=== PATIENT | female | born 1940 | race Caucasian/White ===

== ENCOUNTER 2017-05-20 11:49 | Inpatient (IN) | payer MEDICARE, OTHER ==
[2017-05-20 14:05] LABS: ADD MAN DIFF? NO
[2017-05-20] MEDS: ONDANSETRON 4 MG INJ IV (14:05)
[2017-05-20] MEDS: morphine 4 MG/ML VIAL IV (14:06)
[2017-05-20 14:10] LABS: BASOPHILS % 0.4 % (0.0-2.0); EOSINOPHILS # 0.2 10^3/ul (0.0-0.5); EOSINOPHILS % 2.6 % (0.0-7.0); HEMATOCRIT 37.8 % (37.0-47.0); HEMOGLOBIN 12.6 g/dl (12.0-16.0); LYMPHOCYTES # 1.2 10^3/ul (0.8-2.9); LYMPHOCYTES % 13.7 % (15.0-51.0); MEAN CORPUSCULAR HEMOGLOBIN 29.4 pg (29.0-33.0); MEAN CORPUSCULAR HGB CONC 33.3 g/dl (32.0-37.0); MEAN CORPUSCULAR VOLUME 88.1 fl (82.0-101.0); MEAN PLATELET VOLUME 10.3 fl (7.4-10.4); MONOCYTE # 0.8 10^3/ul (0.3-0.9); MONOCYTES % 8.9 % (0.0-11.0); NEUTROPHIL # 6.7 10^3/ul (1.6-7.5); NEUTROPHILS % 74.1 % (39.0-77.0); PLATELET COUNT 175 10^3/UL (140-415); RED BLOOD COUNT 4.29 10^6/ul (4.20-5.40); RED CELL DISTRIBUTION WIDTH 13.2 % (11.5-14.5)
[2017-05-20 14:10] LABS: WHITE BLOOD COUNT 9.1 10^3/ul (4.8-10.8)
[2017-05-20 14:17] LABS: ADD UMIC YES; UR ASCORBIC ACID NEGATIVE (NEGATIVE); UR BILIRUBIN (Dip) NEGATIVE (NEGATIVE); UR BLOOD (Dip) 2+ mg/dL (NEGATIVE); UR CLARITY CLOUDY (CLEAR); UR COLOR YELLOW (YELLOW); UR GLUCOSE (Dip) NEGATIVE (NEGATIVE); UR KETONES (Dip) NEGATIVE (NEGATIVE); UR LEUKOCYTE ESTERASE (Dip) 3+ Leu/ul (NEGATIVE); UR NITRITE (Dip) POSITIVE (NEGATIVE); UR RBC 6 /HPF (0-5); UR SPECIFIC GRAVITY (Dip) 1.019 (1.003-1.030); UR SQUAMOUS EPITHELIAL CELL FEW /HPF (FEW); UR TOTAL PROTEIN (Dip) 1+ mg/dl (NEGATIVE); UR UROBILINOGEN (Dip) 1+ mg/dL (NEGATIVE); UR WBC > 182 /HPF (0-5)
[2017-05-20 14:29] LABS: ANION GAP 20 (8-16); BLOOD UREA NITROGEN 22 mg/dl (7-20); CALCIUM 9.6 mg/dl (8.4-10.2); CARBON DIOXIDE 30 mmol/L (21-31); CHLORIDE 100 mmol/L (97-110); CREATININE 0.81 mg/dl (0.44-1.00); GLUCOSE 114 mg/dl (70-220); PROTIME 12.2 Sec (11.9-14.9); SODIUM 146 mmol/L (135-144)
[2017-05-20 14:30] LABS: PARTIAL THROMBOPLASTIN TIME 28.1 Sec (25.0-35.0)
[2017-05-20 14:43] LABS: TROPONIN-I < 0.012 ng/ml (0.00-0.12)
[2017-05-20] MEDS ORDERED: ONDANSETRON 4 MG INJ IV ×2 (15:30→18:30)
[2017-05-20] MEDS ORDERED: ACETAMINOPHEN 325 MG TAB PO ×2 (15:30→18:30)
[2017-05-20] MEDS ORDERED: NACL 0.9% 3 ML SYG IV (18:30)
[2017-05-20 18:42] LABS: IRON 60 ug/dl (35-150)
[2017-05-20 18:52] LABS: % IRON SATURATION 18 % SAT (22-52); TOTAL IRON BINDING CAPACITY 336 ug/dl (241-421)
[2017-05-20 19:30] LABS: HEMOGLOBIN A1C 5.8 % (0-5.9)
[2017-05-20 19:48] LABS: FERRITIN 73.5 ng/ml (11.1-264.0)
[2017-05-20] MEDS: SOD CHLORIDE 0.9% 1,000 ML IV (19:49)
[2017-05-20] MEDS: LEVOFLOXACIN 500MG/D5W (PMX) 100 ML IVPB (19:50)
[2017-05-20 20:16] LABS: FREE T4 (FREE THYROXINE) 1.15 ng/dl (0.85-1.93)
[2017-05-20] MEDS: FERROUS SULFATE (EC) 325 MG TAB PO (20:47)
[2017-05-20] MEDS: RIVAROXABAN 10 MG TABLET PO (20:47)
[2017-05-20] MEDS: ATORVASTATIN 10 MG TAB PO (20:47)
[2017-05-20] MEDS: FAMOTIDINE 20 MG INJ IV (20:47)
[2017-05-20] MEDS: CALCIUM CARBONATE 1.25 GM TAB PO (20:47)
[2017-05-21 05:16] LABS: ADD MAN DIFF? NO
[2017-05-21 05:20] LABS: WHITE BLOOD COUNT 7.5 10^3/ul (4.8-10.8)
[2017-05-21 05:20] LABS: BASOPHILS % 0.3 % (0.0-2.0); EOSINOPHILS # 0.3 10^3/ul (0.0-0.5); EOSINOPHILS % 3.7 % (0.0-7.0); HEMATOCRIT 29.9 % (37.0-47.0); HEMOGLOBIN 9.9 g/dl (12.0-16.0); LYMPHOCYTES # 1.2 10^3/ul (0.8-2.9); LYMPHOCYTES % 15.5 % (15.0-51.0); MEAN CORPUSCULAR HEMOGLOBIN 29.7 pg (29.0-33.0); MEAN CORPUSCULAR HGB CONC 33.1 g/dl (32.0-37.0); MEAN CORPUSCULAR VOLUME 89.8 fl (82.0-101.0); MEAN PLATELET VOLUME 10.7 fl (7.4-10.4); MONOCYTE # 0.8 10^3/ul (0.3-0.9); MONOCYTES % 11.1 % (0.0-11.0); NEUTROPHIL # 5.1 10^3/ul (1.6-7.5); NEUTROPHILS % 68.9 % (39.0-77.0); PLATELET COUNT 145 10^3/UL (140-415); RED BLOOD COUNT 3.33 10^6/ul (4.20-5.40); RED CELL DISTRIBUTION WIDTH 12.9 % (11.5-14.5)
[2017-05-21 05:44] LABS: ALANINE AMINOTRANSFERASE 17 IU/L (13-69); ALBUMIN 3.6 g/dl (3.3-4.9); ALBUMIN/GLOBULIN RATIO 1.33; ALKALINE PHOSPHATASE 65 IU/L (42-121); ANION GAP 11 (8-16); ASPARTATE AMINO TRANSFERASE 18 IU/L (15-46); BILIRUBIN,INDIRECT 0.2 mg/dl (0-1.1); BILIRUBIN,TOTAL 0.2 mg/dl (0.2-1.3); BLOOD UREA NITROGEN 20 mg/dl (7-20); CALCIUM 8.7 mg/dl (8.4-10.2); CARBON DIOXIDE 31 mmol/L (21-31); CHLORIDE 102 mmol/L (97-110); CREATININE 0.85 mg/dl (0.44-1.00); GLUCOSE 134 mg/dl (70-220); POTASSIUM 4.5 mmol/L (3.5-5.1); SODIUM 139 mmol/L (135-144); TOTAL PROTEIN 6.3 g/dl (6.1-8.1)
[2017-05-21 05:47] LABS: PHOSPHORUS 3.4 mg/dl (2.5-4.9)
[2017-05-21 05:47] LABS: CHOL/HDL RATIO 3.3 RATIO; CHOLESTEROL 167 mg/dl (100-200); HDL CHOLESTEROL 50 mg/dl (33-92); LDL CHOLESTEROL,CALCULATED 94 mg/dl; MAGNESIUM 1.9 mg/dl (1.7-2.5); TRIGLYCERIDES 116 mg/dl (0-149)
[2017-05-21] MEDS: CALCIUM CARBONATE 1.25 GM TAB PO ×2 (08:13→21:34)
[2017-05-21] MEDS: FERROUS SULFATE (EC) 325 MG TAB PO ×2 (08:13→21:34)
[2017-05-21] MEDS: RIVAROXABAN 15 MG TABLET PO ×2 (11:07→17:35)
[2017-05-21] MEDS: LEVOFLOXACIN 500MG/D5W (PMX) 100 ML IVPB (17:35)
[2017-05-21] MEDS: FAMOTIDINE 20 MG INJ IV (21:33)
[2017-05-21] MEDS: ATORVASTATIN 10 MG TAB PO (21:34)
[2017-05-22 05:16] LABS: ADD MAN DIFF? NO
[2017-05-22 05:24] LABS: BASOPHILS % 0.6 % (0.0-2.0); EOSINOPHILS # 0.3 10^3/ul (0.0-0.5); EOSINOPHILS % 4.4 % (0.0-7.0); HEMOGLOBIN 10.6 g/dl (12.0-16.0); LYMPHOCYTES # 1.3 10^3/ul (0.8-2.9); LYMPHOCYTES % 18.2 % (15.0-51.0); MEAN CORPUSCULAR HEMOGLOBIN 29.5 pg (29.0-33.0); MEAN CORPUSCULAR HGB CONC 33.1 g/dl (32.0-37.0); MEAN CORPUSCULAR VOLUME 89.1 fl (82.0-101.0); MEAN PLATELET VOLUME 10.9 fl (7.4-10.4); MONOCYTE # 0.8 10^3/ul (0.3-0.9); MONOCYTES % 11.8 % (0.0-11.0); NEUTROPHIL # 4.6 10^3/ul (1.6-7.5); NEUTROPHILS % 64.6 % (39.0-77.0); PLATELET COUNT 152 10^3/UL (140-415); RED BLOOD COUNT 3.59 10^6/ul (4.20-5.40); RED CELL DISTRIBUTION WIDTH 12.7 % (11.5-14.5)
[2017-05-22 05:24] LABS: WHITE BLOOD COUNT 7.1 10^3/ul (4.8-10.8)
[2017-05-22 05:36] LABS: MAGNESIUM 1.9 mg/dl (1.7-2.5)
[2017-05-22 05:36] LABS: PHOSPHORUS 3.5 mg/dl (2.5-4.9)
[2017-05-22 05:54] LABS: ANION GAP 15 (8-16); BLOOD UREA NITROGEN 14 mg/dl (7-20); CALCIUM 8.7 mg/dl (8.4-10.2); CARBON DIOXIDE 31 mmol/L (21-31); CHLORIDE 101 mmol/L (97-110); CREATININE 0.81 mg/dl (0.44-1.00); GLUCOSE 123 mg/dl (70-220); POTASSIUM 4.3 mmol/L (3.5-5.1); SODIUM 143 mmol/L (135-144)
[2017-05-22] MEDS: CALCIUM CARBONATE 1.25 GM TAB PO ×2 (09:15→21:18)
[2017-05-22] MEDS: FERROUS SULFATE (EC) 325 MG TAB PO ×2 (09:16→21:18)
[2017-05-22] MEDS: RIVAROXABAN 15 MG TABLET PO (09:16)
[2017-05-22] MEDS: LEVOFLOXACIN 500MG/D5W (PMX) 100 ML IVPB (19:00)
[2017-05-22] MEDS: RIVAROXABAN 10 MG TABLET PO (19:00)
[2017-05-22] MEDS: ATORVASTATIN 10 MG TAB PO (21:18)
[2017-05-22] MEDS: FAMOTIDINE 20 MG INJ IV (21:22)
[2017-05-23] MEDS: HYDROCODONE/APAP (5/325) TAB PO (01:05)
[2017-05-23] MEDS: morphine 2 MG INJ IV (04:11)
[2017-05-23] MEDS: LEVOFLOXACIN 500 MG TAB PO (05:10)
[2017-05-23 05:19] LABS: ADD MAN DIFF? NO
[2017-05-23 05:28] LABS: BASOPHILS % 0.4 % (0.0-2.0); EOSINOPHILS # 0.2 10^3/ul (0.0-0.5); EOSINOPHILS % 3.1 % (0.0-7.0); HEMATOCRIT 32.2 % (37.0-47.0); HEMOGLOBIN 10.7 g/dl (12.0-16.0); LYMPHOCYTES # 1.3 10^3/ul (0.8-2.9); LYMPHOCYTES % 17.3 % (15.0-51.0); MEAN CORPUSCULAR HEMOGLOBIN 29.4 pg (29.0-33.0); MEAN CORPUSCULAR HGB CONC 33.2 g/dl (32.0-37.0); MEAN CORPUSCULAR VOLUME 88.5 fl (82.0-101.0); MEAN PLATELET VOLUME 10.6 fl (7.4-10.4); MONOCYTE # 0.9 10^3/ul (0.3-0.9); MONOCYTES % 11.9 % (0.0-11.0); NEUTROPHILS % 66.8 % (39.0-77.0); PLATELET COUNT 166 10^3/UL (140-415); RED BLOOD COUNT 3.64 10^6/ul (4.20-5.40); RED CELL DISTRIBUTION WIDTH 12.7 % (11.5-14.5)
[2017-05-23 05:28] LABS: WHITE BLOOD COUNT 7.4 10^3/ul (4.8-10.8)
[2017-05-23 05:55] LABS: PHOSPHORUS 4.1 mg/dl (2.5-4.9)
[2017-05-23 05:55] LABS: MAGNESIUM 1.9 mg/dl (1.7-2.5)
[2017-05-23 05:56] LABS: ANION GAP 16 (8-16); BLOOD UREA NITROGEN 13 mg/dl (7-20); CALCIUM 9.2 mg/dl (8.4-10.2); CARBON DIOXIDE 28 mmol/L (21-31); CHLORIDE 101 mmol/L (97-110); CREATININE 0.78 mg/dl (0.44-1.00); GLUCOSE 123 mg/dl (70-220); POTASSIUM 4.1 mmol/L (3.5-5.1); SODIUM 141 mmol/L (135-144)
[2017-05-23] MEDS: CALCIUM CARBONATE 1.25 GM TAB PO ×2 (09:13→20:37)
[2017-05-23] MEDS: FERROUS SULFATE (EC) 325 MG TAB PO ×2 (09:13→20:37)
[2017-05-23] MEDS: DIPHENHYDRAMINE 50 MG INJ IV ×2 (09:20→13:40)
[2017-05-23] MEDS: RIVAROXABAN 10 MG TABLET PO (17:20)
[2017-05-23] MEDS ORDERED: DIPHENHYDRAMINE 50 MG INJ IV (19:00)
[2017-05-23] MEDS: ATORVASTATIN 10 MG TAB PO (20:37)
[2017-05-23] MEDS: FAMOTIDINE 20 MG INJ IV (20:37)
[2017-05-24] MEDS: LEVOFLOXACIN 500 MG TAB PO (06:02)
[2017-05-24] MEDS: CALCIUM CARBONATE 1.25 GM TAB PO (08:34)
[2017-05-24] MEDS: FERROUS SULFATE (EC) 325 MG TAB PO (08:34)
[2017-05-24] MEDS: BISACODYL 10 MG SUPP PR (09:30)
[2017-05-24] MEDS: BISACODYL (EC) 5 MG TAB PO (12:16)
== END 2017-05-24 12:26 | disposition home or self-care (01) | DRG 563 ==
LOC: E/R 11:49 → MS1 15:10
PROVIDERS: Family Medicine
DX: S82.142A Displaced bicondylar fracture of left tibia, initial encounter for closed fracture (principal); I82.442 Acute embolism and thrombosis of left tibial vein; N39.0 Urinary tract infection, site not specified; D64.9 Anemia, unspecified; E78.5 Hyperlipidemia, unspecified; B96.20 Unspecified Escherichia coli [E. coli] as the cause of diseases classified elsewhere; W06.XXXA Fall from bed, initial encounter; Y92.019 Unspecified place in single-family (private) house as the place of occurrence of the external cause; Y99.8 Other external cause status; Z87.11 Personal history of peptic ulcer disease; Z87.891 Personal history of nicotine dependence; Z90.710 Acquired absence of both cervix and uterus
CPT/HCPCS: 36415; 71045; 73590; 73700; 80048; 80053; 80061; 81001; 82728; 83036; 83540; 83735; 84100; 84439; 84443; 84484; 85025; 85610; 85730; 87086; 93005; 93970; 96374; 96375; 97116; 97162; 97530; 99285-25

== ENCOUNTER 2017-06-02 09:08 | Emergency (ER) | payer SELFPAY, MEDICARE, OTHER | END 2017-06-02 09:23 | disposition left against medical advice (07) | LOC: E/R 09:23 | DX: Z53.21 Procedure and treatment not carried out due to patient leaving prior to being seen by health care provider (principal) ==

== ENCOUNTER 2018-11-09 08:39 | Emergency (ER) | payer MEDICARE ==
[2018-11-09] MEDS: DIPHENHYDRAMINE 25 MG CAP PO (09:51)
[2018-11-09] MEDS: predniSONE 20 MG TAB PO (09:51)
== END 2018-11-09 09:58 | disposition home or self-care (01) ==
LOC: E/R 08:39
DX: L50.1 Idiopathic urticaria (principal)
CPT/HCPCS: 99283

== ENCOUNTER 2018-11-20 08:18 | Observation (INO) | payer MEDICARE ==
[2018-11-20] MEDS: METHYLPREDNISOLONE 125 MG INJ IV (08:56)
[2018-11-20] MEDS: EPINEPHrine 1 MG INJ IM (08:57)
[2018-11-20] MEDS: DIPHENHYDRAMINE 50 MG INJ IV ×2 (08:57→20:27)
[2018-11-20 09:02] LABS: ADD MAN DIFF? NO
[2018-11-20 09:03] LABS: BASOPHILS % 0.2 % (0.0-2.0); EOSINOPHILS # 0.1 10^3/ul (0.0-0.5); EOSINOPHILS % 1.2 % (0.0-7.0); HEMATOCRIT 44.9 % (37.0-47.0); HEMOGLOBIN 14.2 g/dl (12.0-16.0); LYMPHOCYTES # 1.4 10^3/ul (0.8-2.9); LYMPHOCYTES % 14.5 % (15.0-51.0); MEAN CORPUSCULAR HEMOGLOBIN 28.3 pg (29.0-33.0); MEAN CORPUSCULAR HGB CONC 31.6 g/dl (32.0-37.0); MEAN CORPUSCULAR VOLUME 89.4 fl (82.0-101.0); MEAN PLATELET VOLUME 10.2 fl (7.4-10.4); MONOCYTE # 0.7 10^3/ul (0.3-0.9); MONOCYTES % 6.7 % (0.0-11.0); NEUTROPHIL # 7.4 10^3/ul (1.6-7.5); PLATELET COUNT 191 10^3/UL (140-415); RED BLOOD COUNT 5.02 10^6/ul (4.20-5.40); RED CELL DISTRIBUTION WIDTH 13.3 % (11.5-14.5)
[2018-11-20 09:03] LABS: WHITE BLOOD COUNT 9.6 10^3/ul (4.8-10.8)
[2018-11-20] MEDS: FAMOTIDINE 20 MG INJ IV ×2 (09:14→20:27)
[2018-11-20 09:20] LABS: ANION GAP 10 (5-13); BLOOD UREA NITROGEN 13 mg/dl (7-20); CALCIUM 9.6 mg/dl (8.4-10.2); CARBON DIOXIDE 28 mmol/L (21-31); CHLORIDE 100 mmol/L (97-110); CREATININE 0.86 mg/dl (0.44-1.00); GLUCOSE 143 mg/dl (70-220); POTASSIUM 4.3 mmol/L (3.5-5.1); SODIUM 138 mmol/L (135-144)
[2018-11-20] MEDS: SOD CHLORIDE 0.9% 1,000 ML IV (10:26)
[2018-11-20] MEDS ORDERED: ACETAMINOPHEN 325 MG TAB PO ×2 (10:30)
[2018-11-20] MEDS ORDERED: ACETAMINOPHEN 650 MG SUPP PR (10:30)
[2018-11-20] MEDS ORDERED: ONDANSETRON 4 MG INJ IV ×2 (10:30)
[2018-11-20] MEDS ORDERED: NACL 0.9% 3 ML SYG IV (10:30)
[2018-11-20 11:04] LABS: C-REACTIVE PROTEIN 1.1 mg/dl (0.0-0.9)
[2018-11-20 11:17] LABS: FREE T4 (FREE THYROXINE) 1.05 ng/dl (0.85-1.93)
[2018-11-20 13:26] LABS: COMPLEMENT C4 38 mg/dl (14-44)
[2018-11-20] MEDS: METHYLPREDNISOLONE 40 MG INJ IV ×2 (14:00→21:55)
[2018-11-21] MEDS: SOD CHLORIDE 0.9% 1,000 ML IV ×2 (01:51→11:07)
[2018-11-21] MEDS: METHYLPREDNISOLONE 40 MG INJ IV ×3 (06:06→20:34)
[2018-11-21 07:27] LABS: ADD MAN DIFF? NO
[2018-11-21 07:30] LABS: BASOPHILS % 0.2 % (0.0-2.0); HEMOGLOBIN 13.5 g/dl (12.0-16.0); LYMPHOCYTES # 0.7 10^3/ul (0.8-2.9); LYMPHOCYTES % 5.5 % (15.0-51.0); MEAN CORPUSCULAR HGB CONC 31.4 g/dl (32.0-37.0); MEAN CORPUSCULAR VOLUME 89.2 fl (82.0-101.0); MEAN PLATELET VOLUME 10.6 fl (7.4-10.4); MONOCYTE # 0.5 10^3/ul (0.3-0.9); MONOCYTES % 3.6 % (0.0-11.0); NEUTROPHIL # 11.1 10^3/ul (1.6-7.5); NEUTROPHILS % 89.3 % (39.0-77.0); PLATELET COUNT 238 10^3/UL (140-415); RED BLOOD COUNT 4.82 10^6/ul (4.20-5.40); RED CELL DISTRIBUTION WIDTH 13.2 % (11.5-14.5)
[2018-11-21 07:30] LABS: WHITE BLOOD COUNT 12.5 10^3/ul (4.8-10.8)
[2018-11-21 07:52] LABS: ALANINE AMINOTRANSFERASE 15 IU/L (13-69); ALBUMIN 4.4 g/dl (3.3-4.9); ALBUMIN/GLOBULIN RATIO 1.33; ALKALINE PHOSPHATASE 91 IU/L (42-121); ANION GAP 10 (5-13); ASPARTATE AMINO TRANSFERASE 26 IU/L (15-46); BILIRUBIN,INDIRECT 0.5 mg/dl (0-1.1); BILIRUBIN,TOTAL 0.5 mg/dl (0.2-1.3); BLOOD UREA NITROGEN 17 mg/dl (7-20); CALCIUM 9.7 mg/dl (8.4-10.2); CARBON DIOXIDE 25 mmol/L (21-31); CHLORIDE 104 mmol/L (97-110); GLUCOSE 187 mg/dl (70-220); MAGNESIUM 2.3 mg/dl (1.7-2.5); PHOSPHORUS 3.6 mg/dl (2.5-4.9); POTASSIUM 4.9 mmol/L (3.5-5.1); SODIUM 139 mmol/L (135-144); TOTAL PROTEIN 7.7 g/dl (6.1-8.1)
[2018-11-21] MEDS: FAMOTIDINE 20 MG INJ IV ×2 (09:19→20:34)
[2018-11-21] MEDS: DIPHENHYDRAMINE 50 MG INJ IV (09:19)
[2018-11-22] MEDS: METHYLPREDNISOLONE 40 MG INJ IV (08:43)
[2018-11-22] MEDS: FAMOTIDINE 20 MG INJ IV (08:43)
[2018-11-22] MEDS: FLUCONAZOLE 150 MG TAB PO (13:01)
[2018-11-22] MEDS: valACYclovir 500 MG TAB PO (13:02)
[2018-11-24 14:41] LABS: HSV 2 IGG ANTIBODY <0.90 index
== END 2018-11-22 13:21 | disposition home or self-care (01) ==
LOC: E/R 08:18 → TEL 12:54
DX: T78.3XXA Angioneurotic edema, initial encounter (principal); B37.0 Candidal stomatitis; E78.5 Hyperlipidemia, unspecified; Z87.11 Personal history of peptic ulcer disease
CPT/HCPCS: 71045; 80048; 80053; 83735; 84100; 84439; 84443; 85025; 85651; 86140; 86160; 86332; 86692; 92610; 96372; 96374; 96375; 99285-25; G0378